=== PATIENT | female | born 1980 | race Caucasian/White ===

== ENCOUNTER 2020-08-29 17:31 | Emergency (ER) | payer OTHER ==
[~2020-08-29 17:31] MED LIST: CIPRO500 M1 PO; IBUPROFEN800 MG PO; KEPPRA500 MG PO; MACROBID100 MG PO; TOPAMAX50 MG PO
[2020-08-29] MEDS ORDERED: ONDANSETRON ODT4 MG PO (19:02)
== END 2020-08-29 19:15 | disposition home or self-care (01) ==
LOC: FER 17:31
DX: S00.93XA Contusion of unspecified part of head, initial encounter (principal); R42 Dizziness and giddiness; W50.0XXA Accidental hit or strike by another person, initial encounter; Y92.89 Other specified places as the place of occurrence of the external cause; Y99.0 Civilian activity done for income or pay
CPT/HCPCS: 70450; Q0162

== ENCOUNTER 2021-08-28 14:16 | Emergency (ER) | payer OTHER ==
[~2021-08-28 14:16] MED LIST changes: +ONDANSETRON ODT4 MG PO
[2021-08-28 15:41] LABS: BASOPHIL 0.7 % (0-2); EOSINOPHIL 3.3 % (0-5); HCT 32.8 % (37.0-47.0); HGB 9.9 g/dl (12.5-16.0); LYMPHOCYTE 28.4 % (15-48); MCHC 30.2 g/dL (32.0-36.0); MCV 82.8 fL (78.0-100.0); MONOCYTE 3.8 % (0-12); MPV 10.8 fL (6.0-9.5); NEUTROPHIL 62.8 % (41-80); NRBC 0; PLT 236 K/uL (150-400); RBC 3.96 M/uL (4.20-5.40); WBC 8.6 K/uL (4.0-10.5)
[2021-08-28 16:15] LABS: ALBUMIN 3.4 g/dL (3.4-5.0); BILIRUBIN - TOTAL 0.1 mg/dL (0.2-1.0); BUN/CREAT RATIO (CALC) 21.1 RATIO; CREATININE 1.66 mg/dL (0.51-0.95); POTASSIUM 4.4 mmol/L (3.5-5.1); TOTAL PROTEIN 7.4 g/dL (6.4-8.2)
[2021-08-28 17:12] LABS: BILIRUBIN NEGATIVE (NEGATIVE); BLOOD NEGATIVE Ery/uL (NEGATIVE); CLARITY CLEAR (CLEAR); COLOR YELLOW (YELLOW); GLUCOSE (U) NORMAL (NORMAL); LEUKOCYTES 1+ Leu/uL (NEGATIVE); NITRITE NEGATIVE (NEGATIVE); PROTEIN NEGATIVE (NEGATIVE); UROBILINOGEN 0.2 mg/dL (0.2-1.0)
[2021-08-28 17:28] LABS: BACTERIA 1+
== END 2021-08-28 19:05 | disposition home or self-care (01) ==
LOC: FER 14:16
PROVIDERS: Emergency Medicine
DX: G40.909 Epilepsy, unspecified, not intractable, without status epilepticus (principal); N17.9 Acute kidney failure, unspecified; E11.9 Type 2 diabetes mellitus without complications; Z88.5 Allergy status to narcotic agent; Z79.84 Long term (current) use of oral hypoglycemic drugs; Z79.899 Other long term (current) drug therapy
CPT/HCPCS: 36415; 80053; 81001; 85025; 99284; J7030

== ENCOUNTER 2021-11-27 23:03 | Emergency (ER) | payer OTHER ==
[2021-11-28 00:08] LABS: BASOPHIL 0.8 % (0-2); EOSINOPHIL 3.8 % (0-5); HGB 11.8 g/dl (12.5-16.0); LYMPHOCYTE 31.3 % (15-48); MCH 25.9 pg (25.0-31.0); MCHC 30.3 g/dL (32.0-36.0); MCV 85.5 fL (78.0-100.0); MONOCYTE 5.3 % (0-12); MPV 10.7 fL (6.0-9.5); NEUTROPHIL 58.1 % (41-80); NRBC 0; PLT 258 K/uL (150-400); RBC 4.56 M/uL (4.20-5.40); RDW 15.2 % (11.5-14.0); WBC 9.9 K/uL (4.0-10.5)
[2021-11-28 00:37] LABS: CORONAVIRUS 2019 SARS-COV-2 NEGATIVE (NEGATIVE); INFLUENZA A NAA NEGATIVE (NEGATIVE)
[2021-11-28 00:54] LABS: ALBUMIN 3.2 g/dL (3.4-5.0); ALKALINE PHOSHATASE 132 U/L (46-116); ALT 20 U/L (14-59); AST 26 U/L (15-37); BILIRUBIN - TOTAL 0.1 mg/dL (0.2-1.0); BUN 31 mg/dL (7-18); BUN/CREAT RATIO (CALC) 24.2 RATIO; CHLORIDE 107 mmol/L (98-107); CO2 (BICARBONATE) 22 mmol/L (21-32); CREATININE 1.28 mg/dL (0.51-0.95); GLOBULIN (CALCULATION) 4.2 g/dL; GLUCOSE 176 mg/dL (74-106); POTASSIUM 4.8 mmol/L (3.5-5.1); TOTAL PROTEIN 7.4 g/dL (6.4-8.2)
[2021-11-28 01:08] LABS: BILIRUBIN NEGATIVE (NEGATIVE); BLOOD NEGATIVE Ery/uL (NEGATIVE); CLARITY CLEAR (CLEAR); COLOR YELLOW (YELLOW); GLUCOSE (U) NORMAL (NORMAL); LEUKOCYTES NEGATIVE Leu/uL (NEGATIVE); NITRITE NEGATIVE (NEGATIVE); PROTEIN NEGATIVE (NEGATIVE)
[2021-11-28 01:14] LABS: SQUAMOUS EPITHELIAL CELLS RARE
== END 2021-11-28 03:32 | disposition other institution (70) ==
LOC: FER 23:03
PROVIDERS: Emergency Medicine
DX: I63.9 Cerebral infarction, unspecified (principal); R29.705 NIHSS score 5; F17.290 Nicotine dependence, other tobacco product, uncomplicated; Z88.5 Allergy status to narcotic agent; Z88.1 Allergy status to other antibiotic agents; Z91.040 Latex allergy status; Z20.822 Contact with and (suspected) exposure to COVID-19
CPT/HCPCS: 36415; 70450; 71045; 74018; 80053; 81001; 84484; 85025; 93005; J2405; J7030; Q9967; U0002